=== PATIENT | female | born 1980 | race Two or more races ===

== ENCOUNTER 2016-09-21 12:47 | Inpatient (IN) | payer MEDICAID ==
[~2016-09-21] VITALS: Ht 160 cm; Wt 104.5 kg
[2016-09-21] MEDS ORDERED: OXYTOCIN 30U/ 0.9% NaCL 500ML 500 ML IV ONE (13:09)
[2016-09-21] MEDS ORDERED: FENTANYL PF 100 MCG/2ML IVPush PRN (13:30)
[2016-09-21] MEDS ORDERED: FENTANYL PF 100 MCG/2ML IV PRN (13:30)
[2016-09-21] MEDS ORDERED: TERBUTALINE 1 MG/ML, 1ML SQ PRN (13:30)
[2016-09-21] MEDS ORDERED: SODIUM CHLORIDE FLUSH 10ML SYR IVF PRN (13:30)
[2016-09-21] MEDS ORDERED: ONDANSETRON 2MG/ML, 2ML IVPush PRN (13:30)
[2016-09-21 13:45] LABS: HEMATOCRIT 31.4 % (34.6-47.8); HEMOGLOBIN 9.8 g/dL (11.7-16.4); WHITE BLOOD COUNT 13.5 x10^3/uL (3.4-10)
[2016-09-21 13:55] LABS: ASPARTATE AMINO TRANSFERASE 12 U/L (15-37); BLOOD UREA NITROGEN 15 mg/dL (7-18)
[2016-09-21] MEDS ORDERED: PLEASE ENTER HEIGHT AND WEIGHT MC SCH (14:00)
[2016-09-21] MEDS ORDERED: PLEASE ENTER ALLERGIES MC SCH ×2 (14:00)
[2016-09-21] MEDS ORDERED: LABETALOL 5MG/ML, 20ML ONE ×2 (14:22→17:14)
[2016-09-21] MEDS: LABETALOL 5MG/ML, 20ML IVPush PRN ×9 (14:28→23:15)
[2016-09-21] MEDS ORDERED: OXYTOCIN 30U/ 0.9% NaCL 500ML 500 ML ONE (15:13)
[2016-09-21] MEDS ORDERED: NEWBORN KIT ONE (15:13)
[2016-09-21] MEDS ORDERED: LIDOCAINE 1%, 20ML ONE (15:13)
[2016-09-21] MEDS ORDERED: MISOPROSTOL 200 MCG TABLET ONE (15:13)
[2016-09-21] MEDS ORDERED: MAGNESIUM SULF. PMX 20GM/500ML 500 ML IV ONE (18:36)
[2016-09-21] MEDS ORDERED: MAGNESIUM SULFATE PMX 4GM/100M 100 ML IVPB ONE (19:00)
[2016-09-21] MEDS: LACTATED RINGERS 1,000 ML IV SCH (19:00)
[2016-09-21] MEDS: MAGNESIUM SULF. PMX 20GM/500ML 500 ML IV PRN (19:07)
[2016-09-21] MEDS: D5%-LACTATED RINGERS 1,000 ML IV SCH (21:09)
[2016-09-22] MEDS: LABETALOL 5MG/ML, 20ML IVPush PRN ×6 (01:30→11:38)
[2016-09-22] MEDS ORDERED: MAGNESIUM SULF. PMX 20GM/500ML 500 ML IV ONE ×2 (01:36→13:15)
[2016-09-22] MEDS: MAGNESIUM SULF. PMX 20GM/500ML 500 ML IV PRN ×2 (01:49→13:52)
[2016-09-22] MEDS ORDERED: LABETALOL 5MG/ML, 20ML ONE (02:32)
[2016-09-22] MEDS: LACTATED RINGERS 1,000 ML IV SCH (05:02)
[2016-09-22] MEDS: D5%-LACTATED RINGERS 1,000 ML IV SCH ×3 (05:09→13:09)
[2016-09-22 07:15] VITALS: BP 153/67
[2016-09-22] MEDS ORDERED: LACTATED RINGERS 1,000 ML INTUTE PRN (08:30)
[2016-09-22] MEDS ORDERED: MISOPROSTOL 200 MCG TABLET PR ONE (10:00)
[2016-09-22] MEDS ORDERED: CARBOPROST TROMETHAMINE 250 MCG/ML, 1ML IM ONE (10:28)
[2016-09-22] MEDS ORDERED: OXYTOCIN 30U/ 0.9% NaCL 500ML 500 ML IV SCH ×2 (10:32)
[2016-09-22] MEDS ORDERED: IBUPROFEN 600 MG TABLET ONE ×2 (10:45→17:05)
[2016-09-22] MEDS ORDERED: OXYcodone/APAP 5/325MG TABLET ONE ×3 (10:45→21:05)
[2016-09-22] MEDS: OXYcodone/APAP 5/325MG TABLET PO PRN ×3 (10:48→21:07)
[2016-09-22] MEDS: IBUPROFEN 200 MG TABLET PO PRN ×2 (10:52→17:09)
[2016-09-22] MEDS ORDERED: CARBOPROST TROMETHAMINE 250 MCG/ML, 1ML IM PRN (11:00)
[2016-09-22] MEDS ORDERED: DOCUSATE 100 MG CAPSULE PO PRN (11:00)
[2016-09-22] MEDS ORDERED: OXYcodone/APAP 5/325MG TABLET PO PRN (11:00)
[2016-09-22] MEDS ORDERED: IBUPROFEN 800 MG TABLET PO PRN (11:00)
[2016-09-22] MEDS ORDERED: ONDANSETRON 2MG/ML, 2ML IV PRN (11:00)
[2016-09-22] MEDS ORDERED: ACETAMINOPHEN 325 MG TABLET PO PRN ×2 (11:00)
[2016-09-22] MEDS ORDERED: DIPH,PERTUSS(ACELL),TET VAC/PF NC IM-VACC PRN (11:00)
[2016-09-22] MEDS ORDERED: OXYTOCIN 10 UNITS/ML, 1ML IM PRN (11:00)
[2016-09-22] MEDS ORDERED: CALCIUM CARBONATE 500 MG TAB.CHEW PO PRN (11:00)
[2016-09-22] MEDS ORDERED: SODIUM CHLORIDE FLUSH 10ML SYR IVF PRN (14:30)
[2016-09-22] MEDS: LACTATED RINGERS 1,000 ML INTUTE SCH (18:38)
[2016-09-22 19:16] VITALS: BP 115/54
[2016-09-22 19:42] LABS: HEMATOCRIT 24.4 % (34.6-47.8); HEMOGLOBIN 7.7 g/dL (11.7-16.4); WHITE BLOOD COUNT 21.4 x10^3/uL (3.4-10)
[2016-09-22 21:10] VITALS: BP 117/55
[2016-09-23] MEDS ORDERED: OXYcodone/APAP 5/325MG TABLET ONE ×3 (00:58→11:52)
[2016-09-23] MEDS ORDERED: IBUPROFEN 600 MG TABLET ONE ×2 (00:58→11:52)
[2016-09-23] MEDS: OXYcodone/APAP 5/325MG TABLET PO PRN ×5 (01:00→22:30)
[2016-09-23] MEDS: IBUPROFEN 200 MG TABLET PO PRN ×2 (01:01→11:56)
[2016-09-23 01:19] VITALS: BP 140/88
[2016-09-23] MEDS ORDERED: MAGNESIUM SULF. PMX 20GM/500ML 500 ML IV ONE (02:25)
[2016-09-23] MEDS: MAGNESIUM SULF. PMX 20GM/500ML 500 ML IV PRN (02:28)
[2016-09-23] MEDS: LACTATED RINGERS 1,000 ML INTUTE SCH (05:18)
[2016-09-23 06:42] VITALS: BP 125/58
[2016-09-23 07:50] VITALS: BP 120/59
[2016-09-23] MEDS ORDERED: PRENATAL VIT/IRON/FA 1 EACH TABLET PO SCH (09:00)
[2016-09-23 15:23] VITALS: BP 142/67
[2016-09-23] MEDS ORDERED: IBUPROFEN 200 MG TABLET PO PRN (20:00)
[2016-09-23] MEDS ORDERED: LACTATED RINGERS 1,000 ML INTUTE PRN (20:00)
[2016-09-23] MEDS: SODIUM CHLORIDE FLUSH 10ML SYR IVF SCH (21:00)
[2016-09-23] MEDS ORDERED: SODIUM CHLORIDE FLUSH 10ML SYR IVF SCH (21:00)
[2016-09-23 21:05] VITALS: BP 115/65
[2016-09-23] MEDS ORDERED: CALCIUM CARBONATE 500 MG TAB.CHEW PO PRN (23:00)
[2016-09-23] MEDS ORDERED: ONDANSETRON 2MG/ML, 2ML IV PRN (23:00)
[2016-09-23] MEDS ORDERED: MISOPROSTOL 200 MCG TABLET PR PRN (23:00)
[2016-09-23 23:25] LABS: WHITE BLOOD COUNT 14.4 x10^3/uL (3.4-10)
[2016-09-23 23:27] LABS: HEMATOCRIT 21.6 % (34.6-47.8); HEMOGLOBIN 6.8 g/dL (11.7-16.4)
[2016-09-24] MEDS: CEFAZOLIN PMX 1GM/50ML 50 ML IV SCH ×3 (00:37→16:19)
[2016-09-24 00:48] VITALS: BP 132/60
[2016-09-24 04:20] VITALS: BP 138/65
[2016-09-24] MEDS: ACETAMINOPHEN 325 MG TABLET PO PRN ×2 (04:50→13:41)
[2016-09-24 05:57] LABS: WHITE BLOOD COUNT 13.3 x10^3/uL (3.4-10)
[2016-09-24 05:59] LABS: HEMATOCRIT 20.3 % (34.6-47.8); HEMOGLOBIN 6.5 g/dL (11.7-16.4)
[2016-09-24 07:30] VITALS: BP 116/61
[2016-09-24] MEDS ORDERED: PRENATAL VIT/IRON/FA 1 EACH TABLET ONE (07:36)
[2016-09-24] MEDS: PRENATAL VIT/IRON/FA 1 EACH TABLET PO SCH (07:38)
[2016-09-24] MEDS: DOCUSATE 100 MG CAPSULE PO PRN ×2 (07:38→19:50)
[2016-09-24] MEDS: IBUPROFEN 600 MG TABLET PO PRN ×3 (07:38→19:50)
[2016-09-24] MEDS: SODIUM CHLORIDE FLUSH 10ML SYR IVF SCH ×2 (09:00→21:00)
[2016-09-24 11:23] VITALS: BP 135/66
[2016-09-24 15:30] VITALS: BP 141/65
[2016-09-24 19:40] VITALS: BP 141/82
[2016-09-25] VITALS (8 sets, daily range): BP systolic 134–156; BP diastolic 64–85
[2016-09-25] MEDS: CEFAZOLIN PMX 1GM/50ML 50 ML IV SCH ×2 (00:27→08:18)
[2016-09-25] MEDS: IBUPROFEN 600 MG TABLET PO PRN ×3 (02:15→14:06)
[2016-09-25] MEDS: OXYcodone/APAP 5/325MG TABLET PO PRN ×2 (02:20→21:47)
[2016-09-25 06:04] LABS: WHITE BLOOD COUNT 17.2 x10^3/uL (3.4-10)
[2016-09-25 06:06] LABS: HEMATOCRIT 19.7 % (34.6-47.8); HEMOGLOBIN 6.3 g/dL (11.7-16.4)
[2016-09-25] MEDS: PRENATAL VIT/IRON/FA 1 EACH TABLET PO SCH (08:18)
[2016-09-25] MEDS: DOCUSATE 100 MG CAPSULE PO PRN ×2 (08:18→21:47)
[2016-09-25] MEDS: SODIUM CHLORIDE FLUSH 10ML SYR IVF SCH ×2 (09:00→21:35)
[2016-09-25] MEDS: PIPERACILLIN/TAZO/PMX 3.375GM 50 ML IV SCH ×2 (15:13→21:35)
[2016-09-25 16:07] LABS: ASPARTATE AMINO TRANSFERASE 26 U/L (15-37); BLOOD UREA NITROGEN 14 mg/dL (7-18)
[2016-09-25 16:32] LABS: C-REACTIVE PROTEIN, QUANT > 19.00 mg/dL (0.02-0.49)
[2016-09-25] MEDS: ACETAMINOPHEN 325 MG TABLET PO PRN (23:06)
[2016-09-26] VITALS (7 sets, daily range): BP systolic 127–158; BP diastolic 79–90
[2016-09-26] MEDS: PIPERACILLIN/TAZO/PMX 3.375GM 50 ML IV SCH ×2 (03:07→09:22)
[2016-09-26 05:49] LABS: WHITE BLOOD COUNT 14.8 x10^3/uL (3.4-10)
[2016-09-26 05:55] LABS: HEMATOCRIT 19.6 % (34.6-47.8); HEMOGLOBIN 6.2 g/dL (11.7-16.4)
[2016-09-26] MEDS: SODIUM CHLORIDE FLUSH 10ML SYR IVF SCH ×2 (09:00→23:28)
[2016-09-26] MEDS: DOCUSATE 100 MG CAPSULE PO PRN (09:22)
[2016-09-26] MEDS: PRENATAL VIT/IRON/FA 1 EACH TABLET PO SCH (09:22)
[2016-09-26] MEDS ORDERED: CEFAZOLIN PMX 2GM/100ML 100 ML IV SCH (15:00)
[2016-09-26] MEDS: IBUPROFEN 600 MG TABLET PO PRN (15:34)
[2016-09-26] MEDS: OXYcodone/APAP 5/325MG TABLET PO PRN (15:34)
[2016-09-26] MEDS: CEFAZOLIN PMX 2GM/50ML 50 ML IV SCH ×2 (15:52→23:27)
[2016-09-27] MEDS: IBUPROFEN 600 MG TABLET PO PRN ×3 (06:33→23:25)
[2016-09-27] MEDS: CEFAZOLIN PMX 2GM/50ML 50 ML IV SCH ×2 (07:30→16:03)
[2016-09-27] MEDS: FERROUS SULFATE 325 MG TABLET PO SCH (08:00)
[2016-09-27 08:50] VITALS: BP 142/81
[2016-09-27] MEDS: SODIUM CHLORIDE FLUSH 10ML SYR IVF SCH ×2 (09:00→20:00)
[2016-09-27] MEDS: PRENATAL VIT/IRON/FA 1 EACH TABLET PO SCH (09:00)
[2016-09-27 12:15] VITALS: BP 147/93
[2016-09-27 16:05] VITALS: BP 141/71
[2016-09-27 19:50] VITALS: BP 144/74
[2016-09-27] MEDS: DOCUSATE 100 MG CAPSULE PO PRN (23:25)
[2016-09-28] VITALS (14 sets, daily range): BP systolic 139–165; BP diastolic 74–95
[2016-09-28 05:25] LABS: HEMATOCRIT 18.8 % (34.6-47.8); HEMOGLOBIN 5.9 g/dL (11.7-16.4)
[2016-09-28] MEDS: DOCUSATE 100 MG CAPSULE PO PRN ×2 (07:49→21:34)
[2016-09-28] MEDS: IBUPROFEN 600 MG TABLET PO PRN ×3 (07:49→21:33)
[2016-09-28] MEDS: FERROUS SULFATE 325 MG TABLET PO SCH (07:49)
[2016-09-28] MEDS: PRENATAL VIT/IRON/FA 1 EACH TABLET PO SCH (07:49)
[2016-09-28] MEDS: CEFAZOLIN PMX 2GM/50ML 50 ML IV SCH ×3 (07:49→13:55)
[2016-09-28] MEDS: SODIUM CHLORIDE FLUSH 10ML SYR IVF SCH ×2 (09:00→21:00)
[2016-09-28] MEDS ORDERED: DIPHENHYDRAMINE 50 MG CAPSULE PO PRN (14:00)
[2016-09-28] MEDS: ACETAMINOPHEN 325 MG TABLET PO PRN (15:19)
[2016-09-29 00:13] VITALS: BP 170/81
[2016-09-29] MEDS: CEFAZOLIN PMX 2GM/50ML 50 ML IV SCH ×3 (00:16→15:59)
[2016-09-29] MEDS: LABETALOL 100 MG TABLET PO SCH ×3 (01:02→15:59)
[2016-09-29 01:15] LABS: ASPARTATE AMINO TRANSFERASE 22 U/L (15-37); BLOOD UREA NITROGEN 22 mg/dL (7-18)
[2016-09-29 01:45] LABS: HEMATOCRIT 23.6 % (34.6-47.8); HEMOGLOBIN 7.5 g/dL (11.7-16.4); WHITE BLOOD COUNT 14.2 x10^3/uL (3.4-10)
[2016-09-29 04:24] VITALS: BP 180/91
[2016-09-29 05:49] LABS: HEMATOCRIT 24.1 % (34.6-47.8); HEMOGLOBIN 7.8 g/dL (11.7-16.4); WHITE BLOOD COUNT 13.7 x10^3/uL (3.4-10)
[2016-09-29 06:23] LABS: DIFF TOTAL CELLS COUNTED 100 CELL DIFF
[2016-09-29 06:26] LABS: ANISOCYTOSIS 1+; HYPOCHROMIA 1+; MICROCYTOSIS 1+; VERIFY COUNTS? YES
[2016-09-29 08:25] VITALS: BP 169/91
[2016-09-29] MEDS: IBUPROFEN 600 MG TABLET PO PRN ×2 (08:28→20:31)
[2016-09-29] MEDS: SODIUM CHLORIDE FLUSH 10ML SYR IVF SCH (08:29)
[2016-09-29] MEDS: POTASSIUM CHLORIDE 20 MEQ TAB.ER.PRT PO SCH (08:46)
[2016-09-29] MEDS: FERROUS SULFATE 325 MG TABLET PO SCH ×2 (08:47→20:32)
[2016-09-29] MEDS: PRENATAL VIT/IRON/FA 1 EACH TABLET PO SCH (08:47)
[2016-09-29 13:05] VITALS: BP 148/89
[2016-09-29 16:18] VITALS: BP 159/93
[2016-09-29 20:00] VITALS: BP 152/78
[2016-09-29] MEDS: DOCUSATE 100 MG CAPSULE PO PRN (20:31)
[2016-09-30] VITALS (7 sets, daily range): BP systolic 143–189; BP diastolic 74–103
[2016-09-30] MEDS: CEFAZOLIN PMX 2GM/50ML 50 ML IV SCH ×3 (00:03→16:11)
[2016-09-30] MEDS: SODIUM CHLORIDE FLUSH 10ML SYR IVF SCH ×2 (00:03→08:23)
[2016-09-30] MEDS: IBUPROFEN 600 MG TABLET PO PRN ×2 (06:04→21:17)
[2016-09-30] MEDS: POTASSIUM CHLORIDE 20 MEQ TAB.ER.PRT PO SCH (08:23)
[2016-09-30] MEDS: LABETALOL 100 MG TABLET PO SCH ×2 (08:23→16:10)
[2016-09-30] MEDS: FERROUS SULFATE 325 MG TABLET PO SCH ×2 (08:23→21:17)
[2016-09-30] MEDS: PRENATAL VIT/IRON/FA 1 EACH TABLET PO SCH (08:24)
[2016-09-30] MEDS ORDERED: ONDANSETRON 2MG/ML, 2ML IV PRN (19:00)
[2016-09-30] MEDS ORDERED: CALCIUM CARBONATE 500 MG TAB.CHEW PO PRN (19:00)
[2016-09-30] MEDS ORDERED: MISOPROSTOL 200 MCG TABLET PR PRN (19:00)
[2016-09-30] MEDS ORDERED: LABETALOL 5MG/ML, 20ML ONE (22:49)
[2016-09-30] MEDS: LABETALOL 5MG/ML, 20ML IVPush PRN (23:05)
[2016-10-01] VITALS (13 sets, daily range): BP systolic 143–194; BP diastolic 66–100
[2016-10-01] MEDS: CEFAZOLIN PMX 2GM/50ML 50 ML IV SCH ×2 (00:05→08:50)
[2016-10-01] MEDS: SODIUM CHLORIDE FLUSH 10ML SYR IVF SCH ×2 (00:09→09:00)
[2016-10-01] MEDS: LABETALOL 5MG/ML, 20ML IVPush PRN ×4 (02:05→10:41)
[2016-10-01 05:14] LABS: HEMATOCRIT 25.1 % (34.6-47.8); HEMOGLOBIN 8.1 g/dL (11.7-16.4)
[2016-10-01] MEDS: PRENATAL VIT/IRON/FA 1 EACH TABLET PO SCH (07:32)
[2016-10-01] MEDS: FERROUS SULFATE 325 MG TABLET PO SCH (07:32)
[2016-10-01] MEDS: LABETALOL 100 MG TABLET PO SCH (07:33)
[2016-10-01] MEDS ORDERED: LABETALOL 100 MG TABLET PO SCH ×2 (09:00→18:00)
[2016-10-01] MEDS ORDERED: hydrALAzine 20 MG/ML, 1ML IV ONE (11:30)
[2016-10-01] MEDS ORDERED: CEFTRIAXONE PMX 2GM/50ML 50 ML IV SCH (14:30)
[2016-10-01] MEDS: OXYcodone/APAP 5/325MG TABLET PO PRN (14:58)
[2016-10-01] MEDS ORDERED: IBUP800T PO (17:14)
[2016-10-01] MEDS ORDERED: SENN-25 PO (17:14)
[2016-10-01] MEDS ORDERED: FERR325T10 PO (17:14)
[2016-10-01] MEDS ORDERED: HYDR-3341 PO ×2 (19:15→19:16)
== END 2016-10-01 21:10 | disposition home or self-care (01) | DRG 774 ==
LOC: LDOP 12:47 → LDIP 13:34 → EDSTATUS 09-22 12:47 → 2NW 09-22 15:10 → 2NE 09-22 15:10 → 2NW 09-23 19:59
PROVIDERS: ADMIT Obstetrics & Gynecology; ATTEND Obstetrics & Gynecology
PROC: 10E0XZZ Delivery of Products of Conception, External Approach (ICD-10-PCS; principal; 2016-09-22)
PROC: 30233N1 Transfusion of Nonautologous Red Blood Cells into Peripheral Vein, Percutaneous Approach (ICD-10-PCS; 2016-09-28)
PROC: 02HV33Z Insertion of Infusion Device into Superior Vena Cava, Percutaneous Approach (ICD-10-PCS; 2016-10-01)
PROC: B548ZZA Ultrasonography of Superior Vena Cava, Guidance (ICD-10-PCS; 2016-10-01)
DX: O77.0 Labor and delivery complicated by meconium in amniotic fluid (principal); O86.89 Other specified puerperal infections; R65.10 Systemic inflammatory response syndrome (SIRS) of non-infectious origin without acute organ dysfunction; O86.21 Infection of kidney following delivery; O76 Abnormality in fetal heart rate and rhythm complicating labor and delivery; Z37.0 Single live birth; B96.20 Unspecified Escherichia coli [E. coli] as the cause of diseases classified elsewhere; O99.03 Anemia complicating the puerperium; D64.9 Anemia, unspecified; Z3A.40 40 weeks gestation of pregnancy
CPT/HCPCS: 36415; 36569; 76937; 77001; 80053; 81001; 82248; 83735; 84132; 84550; 85025; 85651; 86140; 86850; 86900; 86923; 87040; 87077; 87086; 87186; J0690; J0696; J2543; C1751; J0360; J2590; J3475; J7120; J7121; P9016